=== PATIENT | female | born 1980 | race Caucasian/White ===

== ENCOUNTER 2023-05-28 08:38 | Day surgery (SDC) | payer OTHER ==
[~2023-05-28] VITALS: Ht 167.6 cm; Wt 70.9 kg
[~2023-05-28 08:38] MED LIST: ISOVUE-300 (IOPAMIDOL) 100 ML INFUS..BTL IV ONE; LIDOCAINE 2%, 20 ML MDV ONE; NORMAL SALINE 10 ML VIAL ONE; methylPREDNISolone ACETATE 40 MG/ML ONE
[2023-05-28] MEDS ORDERED: DIPHENHYDRAMINE INJ 50 MG/ML VIAL ONE (08:56)
[2023-05-28] MEDS ORDERED: ONDANSETRON HCL 4 MG/2 ML VIAL ONE (08:57)
[2023-05-28] MEDS ORDERED: fentaNYL CITRATE/PF 100 MCG/2 ML AMP ONE (09:08)
[2023-05-28] MEDS: MIDAZOLAM HCL 5 MG/5 ML VIAL ONE ×2 (10:45→10:46)
[2023-05-28 12:26] VITALS: O2SAT 99
[2023-05-28 12:27] VITALS: BP_SYST 104; PULSE 64; RESP 16
== END 2023-05-28 11:40 | disposition home or self-care (01) ==
LOC: SDS 08:38 → SMU 08:39 → SDS 11:40
PROVIDERS: ATTEND Internal Medicine
DX: M51.16 Intervertebral disc disorders with radiculopathy, lumbar region (principal); G89.4 Chronic pain syndrome; M79.18 Myalgia, other site; M05.20 Rheumatoid vasculitis with rheumatoid arthritis of unspecified site; M32.9 Systemic lupus erythematosus, unspecified; Z90.710 Acquired absence of both cervix and uterus; Z88.0 Allergy status to penicillin; Z88.5 Allergy status to narcotic agent; Z79.899 Other long term (current) drug therapy
CPT/HCPCS: 62323; 82962; J2001; J1030; J2250; J3010; Q9967; 76000; J1200; J2405